=== PATIENT | female | born 1970 | race Caucasian/White ===

== ENCOUNTER → 2017-06-25 | Outpatient (CLI) | payer BC, OTHER ==
[~2017-06-25] MED LIST: CLB/200 PO; IBUP-1050 PO
--- NOTE | 2017-06-25 09:41 | DIAGNOSTIC IMAGING REPORT ---
R KNEE 4 OR MORE CLINICAL HISTORY: RIGHT KNEE PAIN AND SWELLING pain. Edema. COMPARISON: None. DISCUSSION: The bones and joint spaces appear intact. There is no evidence of fracture, dislocation or bony disease. There is no evidence for soft tissue swelling. IMPRESSION: Negative study. The above report was generated using voice recognition software. It may contain grammatical, syntax or spelling errors. Electronically signed by: Donta Duenas M.D. 06/25/2017 9:40 AM Dictated Date/Time: 06/25/2017 9:39 AM
== END | disposition home or self-care (01) ==
LOC: C.RDSM 09:30
PROVIDERS: ATTEND Family Medicine
DX: M25.561 Pain in right knee (principal)

== ENCOUNTER → 2017-06-27 | Outpatient (CLI) | payer OTHER | END | disposition home or self-care (01) | LOC: C.RDSM 14:43 | PROVIDERS: ATTEND Orthopaedic Surgery | DX: M79.604 Pain in right leg (principal) ==

== ENCOUNTER → 2017-07-01 | Day surgery (SDC) | payer OTHER ==
[2017-06-28 14:49] VITALS: Ht 162.6 cm; Wt 102.3 kg
[~2017-07-01] VITALS: Ht 162.6 cm; Wt 102.3 kg
[~2017-07-01] MED LIST changes: +ATROPINE SULFATE 0.1 MG/ML 5ML SYR IV PRN; +CEFAZOLIN 2000MG IV PUSH 15 ML IV SCH; +DEXAMETHASONE SOD INJ 4 MG/ML VIAL ONE; +EpINEphrine INJ 1MG/ML AMP 1 MG/ML AMP ONE; +FENTANYL CITRATE INJ 50 MCG/1 ML 2 ML VIAL IV PRN; +FENTANYL CITRATE INJ 50 MCG/1 ML 2 ML VIAL ONE; +HYDROCODONE/ACETAMIN 5/325MG TAB PO PRN; -IBUP-1050 PO; +KETOROLAC TROMETHAMINE 30 MG/ML VIAL IV. PRN; +KETOROLAC TROMETHAMINE 30 MG/ML VIAL ONE; +LACTATED RINGER'S 1000ML 1,000 ML IV SCH; +LIDO 2%/EPINEPHRINE 1:100000 20 ML VIAL INFIL ONE; +LIDOCAINE HCL 2% 2 ML VIAL (20MG/ML) ONE; +METOCLOPRAMIDE HCL INJ 5 MG/ML 2 ML VIAL IV PRN; +MIDAZOLAM HCL 1 MG/ML 2ML VIAL ONE; +MoRPHine SULFATE 2 MG/ML CARP IV PRN; +MoRPHine SULFATE 4 MG/ML 1 ML CARP\\VIAL IV PRN; +ONDANSETRON INJ 2 MG/ML 2 ML VIAL IV PRN; +ONDANSETRON INJ 2 MG/ML 2 ML VIAL ONE; +PROPOFOL IV EMULSION 10 MG/ML 20 ML VIAL IV ONE; +ROPIVACAINE 0.5% 5 MG/ML 30 ML VIAL ONE; +SODIUM CHLORIDE 0.9% 1000ML 1,000 ML IV SCH
--- NOTE | 2017-07-01 08:21 | History & Physical Bridge - [place] ---
H&P Re-Evaluation Bridge Note: I have examined the patient, reviewed the History & Physical and in the interval since the performance of the History & Physical I have noted the following changes of clinical significance: She has tried to stop smoking, having only 3 cigarettes total since I saw her last week, including none yesterday. Otherwise, No changes noted
--- NOTE | 2017-07-01 09:56 | [facility] Post Operative Brief Note ---
Immediate Operative Summary Operative Date Jul 01, 2017. Pre-Operative Diagnosis Right Knee Medial Meniscus Root Tear Post-Operative Diagnosis Same Procedure(s) Performed Right Knee Arthroscopy, Medial Meniscal Root Repair Surgeon Dr. Palencia Police Officer Crime Prevention Surgeon(s) Shaun Flores PA-C Estimated Blood Loss 10ml Findings Consistent with Post-Op Diagnosis Fluids (cc crystalloids) 1000 cc Specimens None Drains None Anesthesia Type General Complication(s) none Disposition Accompanied Pt To Recovery: no Disposition: Recovery Room / PACU
--- NOTE | 2017-07-01 10:08 | [facility] Operative Report ---
Operative Report Operative Date Jul 01, 2017. Pre-Operative Diagnosis Right Knee Medial Meniscus Root Tear Post-Operative Diagnosis Same Procedure(s) Performed Right Knee Arthroscopy, Medial Meniscal Root Repair Surgeon Dr. Palencia Biometrician Surgeon(s) Shaun Flores PA-C Estimated Blood Loss 10ml Fluids 1000 cc Specimens None Drains None Anesthesia Type General Complication(s) none Disposition no Recovery Room / PACU Description of Procedure I was present during entire procedure and performed wound closure. See Dr. Palencia note for specifics of procedure. I attest to the content of the Intraoperative Record and any orders documented therein. Any exceptions are noted below.
--- NOTE | 2017-07-01 10:12 | Discharge Instructions ---
Discharge Instructions Date of Service Jul 01, 2017. Admission Reason for Admission: Right Knee Medial Meniscus Tear Discharge Discharge Diagnosis / Problem: Right Knee Medial Meniscus Tear; Chondromalacia Discharge Goals Goal(s): Decrease discomfort, Improve function, Increase independence Activity Recommendations Activity Limitations: as noted below Lifting Limitations: none Exercise/Sports Limitations: until after follow-up appointment May Resume Sexual Activity: when tolerated Shower/Bathe: tomorrow, keep incision dry Driving or Machine Use: No driving until cleared by retirement specialist. Weightbearing Status: Right non-weightbearing (with knee brace locked in extension and with aide of crutches) . Instructions / Follow-Up Instructions / Follow-Up Post-operative Instructions Dear Patient and Family/Friends, Before you are discharged from the hospital, it is important to know what to expect when you get home after surgery. To that end, we have created this sheet of discharge instructions which covers many commonly asked questions. Make sure you go through this sheet in its entirety with your nurse before you are discharged. Please note that we will go over the specifics of your surgery and recovery when you return for your first post-operative visit. Sincerely, Dr. Palencia Pain Expect to be in a fair amount of pain after surgery. Remember, our goal is not to eliminate your pain, but to make it tolerable. It is a good idea to stay ahead of your pain by taking the medications you were prescribed once you get home. Typically, the pain starts improving 3-7 days after surgery. You should start weaning off the narcotic pain medication (oxycodone, hydrocodone, hydromorphone, morphine) as soon as your pain improves. Please call our office if your pain is not adequately controlled. Ice Ice your operative site at least 5 times a day for 15-30 minutes at a time. Make sure you have a thin cloth between the ice or cooling unit and your skin to prevent andrade bite. This is especially important if you received a nerve block. Continue icing your operative site for the first 5-7 days after surgery , then as needed. Diet/Nausea/Vomiting Start by drinking clear liquids and eating crackers. If you can tolerate this, then you may resume your normal diet. If you feel nauseated or vomit, take Zofran/ondansetron (if prescribed). Please call our office if you have intractable nausea or vomiting, or, if after hours, you may go to the Emergency Room for help. Constipation Constipation is a common side effect of narcotic pain medication. If you have not had a bowel movement within 2 days after surgery, we recommend purchasing an over the counter laxative such as Milk of Magnesia, Dulcolax, or Miralax from a local pharmacy, and taking it as instructed. Call our clinic if any questions. Slings and Braces If you were placed in a sling or brace, it must be worn at all times, including sleep. You may remove your sling or brace for physical therapy, home exercises , and showering. The length of time you will be in your brace and range of motion restrictions depends on what surgery you had; these details will be reviewed at your first post-operative appointment. Weight bearing and Range of Motion. Do not bear any weight through your operative extremity immediately after surgery. If you had upper extremity surgery, do not lift anything with that arm. If you are in a knee brace, keep it locked in place until your follow-up. We will discuss your weight bearing, range of motion, and lifting restrictions in detail at your first post-operative appointment. Continuous Passive Motion (CPM) Machine If you were prescribed a CPM machine, it will start after your first post- operative appointment, at which time we will give you instructions on the range of motion settings and duration of treatment Physical therapy You will be given a prescription for physical therapy or occupational therapy at your first post-operative appointment. Typically, patients start therapy within 1 week of surgery Wound care and showering We will inspect your wound at your first post-operative visit, and may do a dressing change at that time. Most patients will be in a water-proof dressing that is removed 14 days after surgery. It is normal to see some dried blood on the dressing. Do not remove your dressing, paper strips or sutures yourself unless you are given permission. Showering is allowed the day after surgery. Do not scrub or remove any dressings. The wound should not be submerged underwater (i.e. in a bathtub or pool) until 4 weeks after surgery NICOLE stockings If you were given white stockings, these are to be worn at all times except to shower (on both legs) for the first 2 weeks after surgery. Driving You may not drive while taking narcotic pain medication or while in a cast, splint, sling or brace. You, the patient, need to make the final determination about when you are safe to drive, however, the earliest you may consider driving after surgery is below: Hand/Wrist/Elbow Surgery: 3 days Shoulder Surgery: 2 weeks Hip,/Knee/Ankle Surgery: 4 weeks Fracture repair: 6 weeks Return to Work Your return to work depends on what surgery was done and what type of work you do. Please bring any paperwork your employer needs completed to your first post -operative visit. Also, bring a description of your job duties, as this helps us to understand what risks you may face at work. Travel Avoid long distance travel (greater than 1 hour) in airplanes and cars for the first 6 weeks after surgery. If you must travel, you need to have a Doppler ultrasound done before you travel to rule out a blood clot in your legs. Follow-up You should have a follow-up appointment already scheduled 1-2 days after surgery. If not, please contact our office to make this appointment before you leave the hospital. When to call the office It is normal to have swelling and bruising in the limb that was operated on. This will improve with time. It is also normal to have fevers for the first 2 days after surgery. Reasons you should call your doctor include: Uncontrolled pain; Nausea, vomiting, or constipation that does not improve with medication; Fevers over 101.5, chills, sweats; Drainage or bleeding from the wound; Foul odor; Spreading areas of redness; Any other concerns Current Hospital Diet Patient's current hospital diet: Discharge Diet Recommended Diet: Regular Diet Procedures Procedures Performed: Right Knee Arthroscopy, Medial Meniscal Root Repair Pending Studies Studies pending at discharge: no Medical Emergencies . Who to Call and When: Medical Emergencies: If at any time you feel your situation is an emergency, please call 911 immediately. . Non-Emergent Contact Non-Emergency issues call your: Primary Care Provider Call Non-Emergent contact if: you have a fever, temperature is above 101.5, your pain is not controlled, your pain is worsening, wound has increased drainage, you have any medication questions . "Provider Documentation" section prepared by Deni Flores. . [place] Drug Monitoring Program Search Results: patient reviewed within database, no issues identified, see additional documentation
--- NOTE | 2017-07-01 11:08 | OPERATIVE REPORT ---
DATE OF OPERATION: 07/01/2017 PREOPERATIVE DIAGNOSIS: Right knee medial meniscus root tear. 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 OPERATIONS PERFORMED: Right knee arthroscopy and medial meniscus root repair, chondroplasty of medial femoral condyle. SURGEON: Yung Palencia MD BRICK MASON SURGEON: Shaun Flores. ESTIMATED BLOOD LOSS: 10 mL. IV FLUIDS: 1000 mL crystalloid. SPECIMENS: None. COMPLICATIONS: None. IMPLANTS: Three [employer] FasT-Fix all-inside suturing devices. INDICATIONS: Ms. Orozco is a 46-year-old female who injured herself walking down some stairs back in December of 2016 when she felt a pop in the posterior aspect of her knee. She went on to have an MRI that was suspicious for a root tear. She was treated nonoperatively with 2 corticosteroid injections and 3 rounds of physical therapy, which unfortunately failed to relieve her pain. She has medial joint line pain that is bothersome for her at work and while she is doing stairs. Physical exam is significant for medial joint line tenderness to palpation as well as obesity and a positive Raffy's test. Her long leg alignment films show her to be in a varus alignment with weightbearing axis passing just medial to the downslope of the tibial spine. She is a smoker. I had a long discussion with her about the risks and benefits of surgery, alternatives to surgery and expected outcomes. She understands that smoking has a negative affect on healing and that it is in her best interest to stop smoking before and after the surgery, and she agrees that she will do this. After reviewing all the risks and benefits of surgery, alternatives to surgery and expected outcomes, she elected to proceed. All questions were answered. Informed consent was signed. OPERATIVE FINDINGS: 1. The undersurface of the patella was normal. 2. The trochlea was normal. 3. The medial and lateral gutters as well as the suprapatellar pouch were normal with no loose bodies. 4. The medial femoral condyle showed a large grade 3 chondral lesion, measuring approximately 10 x 21 mm. 5. The medial tibial plateau showed an approximately 7 mm diameter area of grade 3 chondromalacia. 6. Medial meniscus showed a radial tear adjacent to the root with some residual stump of the root remaining. There was reasonable mobility of the meniscal tissue. 7. The lateral compartment showed grade 1 chondromalacia of the lateral femoral condyle and lateral tibial plateau. Lateral meniscus was normal. 8. ACL and the PCL were intact. A chondroplasty was performed of the medial femoral condyle lesion. The medial meniscus root tear was repaired with 2 horizontal mattress all-inside sutures with a backup horizontal mattress suture placed more through the posterior horn. The notch was microfractured to increase the probability of meniscal healing. DESCRIPTION OF THE OPERATION: The patient was identified in the preoperative holding area, where her surgical site was marked. She was brought back to main operating room, where she was placed on the operating room table and general anesthesia was administered. All bony prominences were padded. Perioperative antibiotics were administered. She was prepped and draped in the normal sterile fashion. Prior to incision, a multidisciplinary timeout was called. All in the room were in agreement. We began by injecting our portal sites with a total of 5 mL of 2% lidocaine with epinephrine. Anterolateral portal was then created followed by a medial working portal under direct visualization. We then performed a diagnostic arthroscopy revealing the above findings. Once diagnostic arthroscopy was complete, we then introduced the shaver, which was used to perform a gentle chondroplasty of the medial femoral condyle and remove any unstable flaps. The meniscus was extensively probed and the tear was reducible. Therefore, I elected to repair it. We opened up a FasT-Fix meniscal suturing device and placed 2 horizontal mattress sutures across the radial tear, which were tensioned down to reduce the tear, then cut. I then placed a backup horizontal mattress suture through the posterior horn also in horizontal mattress fashion. Meniscus tear was then once again probed and there was no longer any displacement across the tear. I felt it was in her best interest to microfracture the notch to increase the healing rates, particularly in light of the fact that she is in varus alignment and has been a smoker, although she is attempting to quit. A 45-degree microfracture awl was introduced through the anteromedial portal and used to create 3 microfracture holes in the lateral femoral condyle in the notch just anterior to the ACL insertion. The arthroscopic fluid was turned off and marrow elements could be seen emanating into the knee through the microfracture holes. At this point, the arthroscopic instruments were removed from the knee. Her portals were closed with 3-0 Monocryl sutures in an inverted fashion. Steri-Strips and sterile dressings were applied. She was placed into a hinged knee brace locked in full extension. She was awoke from anesthesia and transferred to recovery room in stable condition. POSTOPERATIVE COURSE: The patient will be discharged home from the recovery room. She will return to clinic tomorrow to start physical therapy and review her restrictions and arthroscopic images. She will be on a complex meniscus repair protocol, which entails 6 weeks of toe touch weightbearing in a brace. She will be on aspirin for DVT prophylaxis. I attest to the content of the Intraoperative Record and any orders documented therein. Any exceptions are noted below. JOAO
[2017-07-01 11:31] VITALS: TEMP 36.3
--- NOTE | 2017-07-01 11:41 | Anesthesia Progress Nt - [facility] ---
Anesthesia Post Op Note Date & Time Jul 01, 2017 at 11:41 Vital Signs Pain Intensity: 0 Vital Signs Past 12 Hours Date Time Temp Pulse Resp B/P (MAP) Pulse Ox O2 Delivery O2 Flow Rate FiO2 07/01/17 11:31 36.3 70 16 126/84 (98) 95 Room Air 07/01/17 11:07 63 18 95 07/01/17 11:07 63 18 95 07/01/17 11:07 66 18 07/01/17 11:07 66 18 07/01/17 11:06 117/87 07/01/17 11:06 117/87 07/01/17 11:03 36.4 67 20 117/87 94 Room Air 07/01/17 11:02 69 13 97 07/01/17 11:02 67 13 07/01/17 11:02 67 13 07/01/17 11:02 69 13 97 07/01/17 11:01 123/84 07/01/17 11:01 123/84 07/01/17 10:57 63 17 07/01/17 10:57 63 17 98 07/01/17 10:57 63 17 07/01/17 10:57 63 17 98 07/01/17 10:56 125/81 07/01/17 10:56 125/81 07/01/17 10:52 65 12 07/01/17 10:52 61 12 99 07/01/17 10:52 65 12 07/01/17 10:52 61 12 99 07/01/17 10:51 117/88 07/01/17 10:51 117/88 07/01/17 10:47 68 18 91 07/01/17 10:47 68 18 91 07/01/17 10:47 65 18 07/01/17 10:47 65 18 07/01/17 10:46 126/85 07/01/17 10:46 126/85 07/01/17 10:42 75 14 07/01/17 10:42 77 14 97 07/01/17 10:42 75 14 07/01/17 10:42 77 14 97 07/01/17 10:41 119/85 07/01/17 10:41 119/85 07/01/17 10:37 63 16 98 07/01/17 10:37 63 16 98 07/01/17 10:37 63 16 07/01/17 10:37 63 16 07/01/17 10:36 123/86 07/01/17 10:36 123/86 07/01/17 10:32 62 17 07/01/17 10:32 62 17 07/01/17 10:32 64 17 96 07/01/17 10:32 64 17 96 07/01/17 10:31 128/83 07/01/17 10:31 128/83 07/01/17 10:27 64 19 07/01/17 10:27 64 19 07/01/17 10:27 66 19 97 07/01/17 10:27 66 19 97 07/01/17 10:26 122/84 07/01/17 10:26 122/84 07/01/17 10:22 65 19 96 07/01/17 10:22 65 19 96 07/01/17 10:22 65 19 07/01/17 10:22 65 19 07/01/17 10:21 128/83 07/01/17 10:21 128/83 07/01/17 10:17 65 16 95 07/01/17 10:17 66 16 07/01/17 10:17 65 16 95 07/01/17 10:17 66 16 07/01/17 10:16 118/80 07/01/17 10:16 118/80 07/01/17 10:12 67 14 07/01/17 10:12 70 14 97 07/01/17 10:12 67 14 07/01/17 10:12 70 14 97 07/01/17 10:11 122/85 07/01/17 10:11 122/85 07/01/17 10:08 128/80 07/01/17 10:08 128/80 07/01/17 10:07 67 07/01/17 10:07 67 97 07/01/17 10:07 36.8 72 16 128/80 95 Mask 6 07/01/17 10:07 67 97 07/01/17 10:07 67 07/01/17 07:15 36.4 77 20 129/88 (102) Room Air Notes Mental Status: alert / awake / arousable, participated in evaluation Pt Amnestic to Procedure: Yes Nausea / Vomiting: adequately controlled Pain: adequately controlled Airway Patency, RR, SpO2: stable & adequate BP & HR: stable & adequate Hydration State: stable & adequate Anesthetic Complications: no major complications apparent
[2017-07-01 12:40] VITALS: BP 123/82; O2SAT 96
== END | disposition home or self-care (01) ==
LOC: X.SURG 06:47
PROVIDERS: ATTEND Orthopaedic Surgery
DX: S83.241A Other tear of medial meniscus, current injury, right knee, initial encounter (principal); X50.9XXA Other and unspecified overexertion or strenuous movements or postures, initial encounter; F17.210 Nicotine dependence, cigarettes, uncomplicated; Z83.3 Family history of diabetes mellitus; Z83.6 Family history of other diseases of the respiratory system

== ENCOUNTER → 2017-11-26 | Outpatient (CLI) | payer OTHER ==
[~2017-11-26] MED LIST changes: -ATROPINE SULFATE 0.1 MG/ML 5ML SYR IV PRN; -CEFAZOLIN 2000MG IV PUSH 15 ML IV SCH; -DEXAMETHASONE SOD INJ 4 MG/ML VIAL ONE; -EpINEphrine INJ 1MG/ML AMP 1 MG/ML AMP ONE; -FENTANYL CITRATE INJ 50 MCG/1 ML 2 ML VIAL IV PRN; -FENTANYL CITRATE INJ 50 MCG/1 ML 2 ML VIAL ONE; -HYDROCODONE/ACETAMIN 5/325MG TAB PO PRN; -KETOROLAC TROMETHAMINE 30 MG/ML VIAL IV. PRN; -KETOROLAC TROMETHAMINE 30 MG/ML VIAL ONE; -LACTATED RINGER'S 1000ML 1,000 ML IV SCH; -LIDO 2%/EPINEPHRINE 1:100000 20 ML VIAL INFIL ONE; -LIDOCAINE HCL 2% 2 ML VIAL (20MG/ML) ONE; -METOCLOPRAMIDE HCL INJ 5 MG/ML 2 ML VIAL IV PRN; -MIDAZOLAM HCL 1 MG/ML 2ML VIAL ONE; -MoRPHine SULFATE 2 MG/ML CARP IV PRN; -MoRPHine SULFATE 4 MG/ML 1 ML CARP\\VIAL IV PRN; -ONDANSETRON INJ 2 MG/ML 2 ML VIAL IV PRN; -ONDANSETRON INJ 2 MG/ML 2 ML VIAL ONE; -PROPOFOL IV EMULSION 10 MG/ML 20 ML VIAL IV ONE; -ROPIVACAINE 0.5% 5 MG/ML 30 ML VIAL ONE; -SODIUM CHLORIDE 0.9% 1000ML 1,000 ML IV SCH
== END | disposition home or self-care (01) ==
LOC: C.RDSM 11:27
PROVIDERS: ATTEND Orthopaedic Surgery
DX: M25.562 Pain in left knee (principal)

== ENCOUNTER 2023-05-11 14:40 | Observation (INO) ==
[2023-05-11] MEDS ORDERED: METOCLOPRAMIDE HCL INJ 5 MG/ML 2 ML VIAL IV STA (15:01)
[2023-05-11] MEDS ORDERED: diphenhydrAMINE 50 MG/ML VIAL IV STA (15:01)
[2023-05-11] MEDS ORDERED: KETOROLAC TROMETHAMINE 15 MG/ML VIAL IV STA (15:01)
[2023-05-11] MEDS ORDERED: SODIUM CHLORIDE 0.9% 1,000 ML IV ONE (15:01)
--- NOTE | 2023-05-11 15:04 | Emergency Department Note ---
ED Provider Note History of Present Illness Chief Complaint: Vomiting Stated Complaint: VOMITING Time Seen by Provider: 05/11/23 14:48 Source: patient Mode of arrival: ambulatory Limitations: no limitations This patient is a 52-year-old female who presents to the emergency department for evaluation of headache and vomiting. Patient reports that her symptoms started 2 days ago. She reports that she initially developed a frontal headache and vomiting. She thought this might be due to vertigo as she has had this in the past and she had some dizziness with this. She states that she developed worsening vomiting and could not stop throwing up so she came to the ER 2 days ago. She was treated and felt better when she went home, but states that shortly afterward her vomiting returned. She has tried Zofran at home without relief. She has been unable to keep anything down. She reports that she has soreness in her throat and abdomen from vomiting. She continues to have a frontal headache. Does have a history of migraines and states this feels somewhat similar, but they do not typically last this long. She denies any recent illnesses, fevers or neck pain/stiffness. Home Medications Medication Instructions Recorded Confirmed Type meclizine 25 mg tablet 25 mg PO TID PRN dizziness #20 tabs 05/09/19 05/11/23 Rx meloxicam 15 mg tablet 15 mg PO DAILY 05/10/23 05/11/23 History ondansetron HCl 4 mg tablet 4 mg PO UD PRN Nausea And Vomiting 05/10/23 05/11/23 History venlafaxine 37.5 mg 37.5 mg PO DAILY 05/10/23 05/11/23 History capsule,extended release 24 hr albuterol sulfate 90 mcg/actuation 2 puff inhalation Q6H PRN 05/11/23 05/11/23 History aerosol inhaler Shortness Of Breath Or Wheezing Allergies Allergy/AdvReac Type Severity Reaction Status Date / Time oxycodone Allergy Mild NAUSEA Verified 05/11/23 16:56 Past Med/Surg History Medical History Migraine headache Marijuana use No pertinent past medical history Surgical History H/O: hysterectomy Social History Smoking Status: Current every day smoker Tobacco Type: Cigarettes Cigarettes Per Day: 15; Do You Dip or Chew Tobacco: No; Tobacco Cessation Education Requested by Patient: No Hx Alcohol Use: No Hx Substance Use: Yes Last Used Substance: Days (ago) Last Used Substance Other:: Pt. states she used last week Preferred Language: Armenian Rn Labor And Delivery Required: No Beliefs That Will Affect Care: None Current Living Situation: Spouse Other Information That Helps Us Care for You: No Feels Safe at Home: Yes Safety Concerns: Feels Safe At This Time Assistive Devices: Denture - Upper, Denture - Lower and Glasses Physical Exam Vital Signs Vital Signs - 24 hr 05/11/23 14:46 05/11/23 15:40 05/11/23 16:20 Pulse Rate 80 64 Pulse Rate [Apical] 64 Respiratory Rate 18 15 Blood Pressure 146/91 H Blood Pressure [Left Arm] 158/83 H Blood Pressure Mean 109 Blood Pressure Mean [Left Arm] 108 Blood Pressure Position Sitting Pulse Oximetry 92 95 Oxygen Delivery Method Room Air Room Air Sepsis Recent Fever Within 48 Hours No Sepsis New/Unexplained Change in Mental Status No Sepsis Action Taken by Nursing No Action Required 05/11/23 17:00 05/11/23 19:30 Pulse Rate Pulse Rate [Apical] 70 72 Respiratory Rate 16 16 Blood Pressure Blood Pressure [Left Arm] 128/94 128/79 Blood Pressure Mean Blood Pressure Mean [Left Arm] 105 95 Blood Pressure Position Pulse Oximetry 93 97 Oxygen Delivery Method Room Air Room Air Sepsis Recent Fever Within 48 Hours Sepsis New/Unexplained Change in Mental Status Sepsis Action Taken by Nursing VITALS: Vitals are noted on the nurse's note and reviewed by myself. GENERAL: This is a 52-year-old female, in no acute distress, holding an emesis bag but not actively vomiting. SKIN: The skin was without rashes. EYES: Pupils equal round and reactive to light and accommodation. NECK: Supple without nuchal rigidity. No lymphadenopathy. Full range of motion of the neck without meningismus. HEART: Regular rate and rhythm without murmurs gallops or rubs. LUNGS: Clear to auscultation bilaterally without wheezes, rales or rhonchi. ABDOMEN: Positive bowel sounds x 4. Soft, nontender to palpation. NEURO: Patient was alert and oriented to person place and time. Course Administered Medications Enoxaparin Sodium (Enoxaparin Inj 40 Mg/0.4 Ml Syr) 40 mg SQ HS DARLYN Stop: 06/10/23 22:59 Last Admin: 05/11/23 22:56 Dose: Not Given Documented By: YUSEF Lactated Ringer's (Lr) 1,000 mls @ 125 mls/hr IV .Q8H DARLYN Stop: 05/12/23 22:23 Last Admin: 05/12/23 06:38 Dose: 125 mls/hr Documented By: Infusion: 05/12/23 06:38 Dose: Infused Documented By: Admin: 05/11/23 22:44 Dose: 125 mls/hr Documented By: YUSEF Ceftriaxone Sodium 2,000 mg/ (Dextrose) 50 mls @ 100 mls/hr IV Q24H DARLYN; Protocol Stop: 05/17/23 07:59 Last Infusion: 05/12/23 10:02 Dose: Infused Documented By: Admin: 05/12/23 09:07 Dose: 100 mls/hr Documented By: CEE Ketorolac Tromethamine (Ketorolac Tromethamine 15 Mg/Ml Vial) 15 mg IV Q6H PRN PRN Reason: Migraine Pain Stop: 05/16/23 22:23 Last Admin: 05/12/23 11:27 Dose: 15 mg Documented By: CEE Venlafaxine HCl (Venlafaxine Hcl Xr 37.5 Mg Capxr) 37.5 mg PO DAILY DARLYN Stop: 06/11/23 08:59 Last Admin: 05/12/23 07:27 Dose: 37.5 mg Documented By: CEE Discontinued Medications Diphenhydramine HCl (Diphenhydramine 50 Mg/Ml Vial) 25 mg IV NOW STA Stop: 05/11/23 15:02 Last Admin: 05/11/23 15:26 Dose: 25 mg Documented By: JOSEE Sodium Chloride (Nss) 1,000 mls @ 999 mls/hr IV .Q1H1M ONE Stop: 05/11/23 16:01 Last Infusion: 05/11/23 16:34 Dose: Infused Documented By: Admin: 05/11/23 15:26 Dose: 999 mls/hr Documented By: JOSEE Potassium Chloride (K Cem / Wtr) 10 meq in 100 mls @ 100 mls/hr IV ONE ONE Stop: 05/11/23 21:29 Last Infusion: 05/11/23 22:25 Dose: Infused Documented By: Admin: 05/11/23 20:46 Dose: 100 mls/hr Documented By: JOSEE Magnesium Sulfate/Dextrose (Magnesium Sulfate / D5w) 1 gm in 100 mls @ 50 mls/hr IV Q2H DARLYN Stop: 05/12/23 01:59 Last Infusion: 05/12/23 03:17 Dose: Infused Documented By: Admin: 05/12/23 00:45 Dose: 50 mls/hr Documented By: Infusion: 05/12/23 00:45 Dose: Infused Documented By: Admin: 05/11/23 22:45 Dose: 50 mls/hr Documented By: YUSEF Ketorolac Tromethamine (Ketorolac Tromethamine 15 Mg/Ml Vial) 15 mg IV NOW STA Stop: 05/11/23 15:02 Last Admin: 05/11/23 15:26 Dose: 15 mg Documented By: JOSEE Metoclopramide HCl (Metoclopramide Hcl Inj 5 Mg/Ml 2 Ml Vial) 10 mg IV NOW STA Stop: 05/11/23 15:02 Last Admin: 05/11/23 15:26 Dose: 10 mg Documented By: JOSEE Sumatriptan Succinate (Sumatriptan Succinate 6 Mg/0.5 Ml Vial) 6 mg SQ NOW STA Stop: 05/11/23 21:55 Last Admin: 05/12/23 03:22 Dose: 6 mg Documented By: YUSEF Medical Decision Making Differential Diagnosis Gastroenteritis, food borne illness, infections, appendicitis, diverticulitis, inflammatory bowel disease, obstruction, GI bleed, biliary pathology, volvulus, as well as other pathologies. Medical Records Attestation: I reviewed the patient's medical records. Additional Comments: Prior ER records reviewed Laboratory Data Attestation: I reviewed the patient's lab results. 05/12/23 06:13 05/12/23 06:13 Lab Results 05/11/23 Range/Units 15:18 WBC 8.42 (4.8-10.8) K/ul RBC 5.22 (4.20-5.40) M/uL Hgb 16.3 H (12.0-16.0) g/dl Hct 47.4 H (37.0-47.0) % MCV 90.8 (80.0-100.0) fL MCH 31.2 (25.0-34.0) pg MCHC 34.4 (32.0-36.0) g/dL RDW Std Deviation 41.7 (36.4-46.3) fL RDW Coeff of Eduard 12.7 (11.5-14.5) % Plt Count 279 (130-400) K/uL MPV 9.1 L (9.4-12.4) fL Immature Gran % (Auto) 0.4 % Neut % (Auto) 65.5 % Lymph % (Auto) 24.7 % [place] % (Auto) 7.2 % Eos % (Auto) 1.2 % Baso % (Auto) 1.0 % Neut # (Auto) 5.52 (1.40-6.50) K/uL Lymph # (Auto) 2.08 (1.20-3.40) K/uL [place] # (Auto) 0.61 H (0.11-0.59) K/uL Eos # (Auto) 0.10 (0.00-0.50) K/uL Baso # (Auto) 0.08 (0.00-0.20) K/uL Immature Gran # (Auto) 0.03 (0.01-0.20) K/uL Sodium 137 (136-145) mmol/L Potassium 3.4 L (3.5-5.1) mmol/L Chloride 103 (98-107) mmol/L Carbon Dioxide 20 L (21-32) mmol/L Anion Gap 14 H (3-11) BUN 14 (6-23) mg/dl Creatinine 0.65 (0.6-1.2) mg/dl Est Cr Clr Drug Dosing Not Reportable Est GFR ( Amer) 116.7 ml/min Est GFR (Non-Af Amer) 100.7 ml/min BUN/Creatinine Ratio 21.5 H (10-20) Glucose 109 H (70-99(Fasting)) mg/dl Calcium 9.5 (8.6-10.3) mg/dl Magnesium 1.7 (1.7-2.4) mg/dl Total Bilirubin 1.4 H (0.2-1.0) mg/dl AST 24 (13-39) U/L ALT 28 (7-52) U/L Alkaline Phosphatase 63 (34-104) U/L Total Protein 7.7 (6.0-8.3) gm/dl Albumin 4.6 (3.4-5.0) gm/dl Globulin 3.1 (2.5-4.0) gm/dl Albumin/Globulin Ratio 1.5 (0.9-2) Lipase 19 (11-82) U/L MDM Narrative 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 Patient was placed on the construction pit worker. Patient was noted to be in normal sinus rhythm at an initial rate of 72 bpm. The patient is a 52-year-old female who presents today complaining of continued vomiting and headache. Patient was seen here for the same thing 2 days ago. Based on the patient's presentation and work up, I feel the patient is stable for outpatient treatment. The patient was educated to return to the emergency department for any worsening of their current condition or new/concerning symptoms. [] will follow up with []. Discharge Plan Visit Data Chief Complaint: Vomiting Stated Complaint: VOMITING ED Provider: Niels Dao ED Midlevel Provider: Julia Alvarez Patient Disposition: Admitted As Inpatient Discharge Instructions Interventions: ED Discharge Assessment Last Done: 05/11/23 21:59
[2023-05-11 15:36] LABS: Basophils # (auto) 0.08 K/uL (0.00-0.20); Eosinophils % (auto) 1.2 %; Hematocrit (blood only) 47.4 % (37.0-47.0); Hemoglobin 16.3 g/dl (12.0-16.0); Immature Granulocytes # (auto) 0.03 K/uL (0.01-0.20); Immature Granulocytes % (auto) 0.4 %; Lymphocytes # (auto) 2.08 K/uL (1.20-3.40); Lymphocytes % (auto) 24.7 %; Mean Corpuscular Hemoglobin 31.2 pg (25.0-34.0); Mean Corpuscular Hgb Conc 34.4 g/dL (32.0-36.0); Mean Corpuscular Volume 90.8 fL (80.0-100.0); Mean Platelet Volume 9.1 fL (9.4-12.4); Monocytes # (auto) 0.61 K/uL (0.11-0.59); Monocytes % (auto) 7.2 %; Neutrophils # (auto) 5.52 K/uL (1.40-6.50); Neutrophils % (auto) 65.5 %; Platelet Count 279 K/uL (130-400); RDW Coefficient of Variation 12.7 % (11.5-14.5); RDW Standard Deviation 41.7 fL (36.4-46.3); Red Blood Count 5.22 M/uL (4.20-5.40); White Blood Count 8.42 K/ul (4.8-10.8)
[2023-05-11 16:00] LABS: Alanine Aminotransferase 28 U/L (7-52); Albumin Globulin Ratio 1.5 (0.9-2); Albumin Level 4.6 gm/dl (3.4-5.0); Alkaline Phosphatase 63 U/L (34-104); Anion Gap 14 (3-11); Aspartate Aminotransferase 24 U/L (13-39); BUN Creatinine Ratio 21.5 (10-20); Bilirubin,Total 1.4 mg/dl (0.2-1.0); Blood Urea Nitrogen 14 mg/dl (6-23); Calcium 9.5 mg/dl (8.6-10.3); Carbon Dioxide 20 mmol/L (21-32); Chloride 103 mmol/L (98-107); Est GFR (African American) 116.7 ml/min; Est GFR (Non-African American) 100.7 ml/min; Globulin 3.1 gm/dl (2.5-4.0); Glucose 109 mg/dl (70-99(Fasting)); Lipase 19 U/L (11-82); Potassium 3.4 mmol/L (3.5-5.1); Sodium 137 mmol/L (136-145); Total Protein 7.7 gm/dl (6.0-8.3)
--- NOTE | 2023-05-11 19:36 | History & Physical Report ---
Date of Service May 11, 2023 Assessment & Plan (1) Nausea and vomiting: Plan: N/V/D x 5 days No leukocytosis; afebrile BioFire on 05/10 negative UA with some blood and protein on 05/10 Lipase WNL Stool PCR ordered, pending Advance to clear liquid diet as tolerated IVF resuscitation with LR at 125 mL an hour x 3 Zofran as needed for nausea/vomiting Acetaminophen IV as needed for fever/pain Recommend outpatient HIDA scan A.m. CBC, BMP, mag (2) Migraine headache: Plan: Severe, constant headache that is exacerbated by vomiting/dry heaving Hx of migraines, but current migraine does not feel like past episodes Meclizine as needed for dizziness Toradol, Benadryl, and Reglan given in the ED Toradol 15 mg IV as needed Benadryl 25 mg IV as needed Patient reports she has been unable to keep down her home meds ?Cyclic vomiting syndrome Will trial sumatriptan 6 mg SQ; can add on PRN if patient tolerates well Restart venlafaxine daily if she is able to tolerate swallowing pills; withdrawal might be contributing to her headaches (3) Hypokalemia: Plan: Mild; K 3.4 on arrival K rider 10mEq x 1 Recheck a.m. BMP (4) Marijuana use: Plan: Marijuana positive on arrival Unclear if this is contributing to vomiting Plan Disposition: Obs - Admit to [facility] telemetry Full code Clear liquid diet, advance diet as tolerated VTE PPx: Lovenox 40 mg SQ q24h History of Present Illness Chief Complaint: Vomiting Primary Care Provider: Any Michelenelida Perkins is a 52-year-old female with PMH migraines, bronchitis, and marijuana use. She presented for vomiting and diarrhea x 5 days. She came to the CT ED on 05/10, was discharged home. She returned on 05/11. She has had yellow, liquidy stools. She also notes that she has been throwing up bile and dry heaving. She has not been tolerating solids or liquids. No change in diet prior to symptoms. No history of IBS, UC, or Crohn's. No food intolerances, but the patient notes she has gotten sick in the past when eating eggs. Patient reports she has a history of migraines, which occur a couple times per year; however she notes that her current migraines have been constant and severe. Vomiting and dry heaving makes the migraines worse. She has been taking Excedrin and ibuprofen without relief. She has not been taking her regular medications as she been unable to keep anything down. She endorses tobacco cigarette smoking; 0.5 PPD; as well as occasional marijuana use. She denies recent alcohol use. Patient works at the [employer], and reports that she has been regularly around sick contacts recently. Vital stable at time admission. ED course: Toradol 15 mg IV Benadryl 25 mg IV Reglan 10 mg IV NSS 1000 mg IV ROS: Patient endorses chills, body aches, headache, dry heaving, vomiting with bile, and diarrhea with yellow (mostly liquid, some formation), Patient denies fever, rashes, tick bites, cough, chest pain, SOB, abdominal pain, burning with urination, blood in stool or urine, or N/T in arms or legs. Allergies Allergy/AdvReac Type Severity Reaction Status Date / Time oxycodone Allergy Mild NAUSEA Verified 05/11/23 16:56 Home Medications Medication Instructions Recorded Confirmed Type meclizine 25 mg tablet 25 mg PO TID PRN dizziness #20 tabs 05/09/19 05/11/23 Rx meloxicam 15 mg tablet 15 mg PO DAILY 05/10/23 05/11/23 History ondansetron HCl 4 mg tablet 4 mg PO UD PRN Nausea And Vomiting 05/10/23 05/11/23 History venlafaxine 37.5 mg 37.5 mg PO DAILY 05/10/23 05/11/23 History capsule,extended release 24 hr albuterol sulfate 90 mcg/actuation 2 puff inhalation Q6H PRN 05/11/23 05/11/23 History aerosol inhaler Shortness Of Breath Or Wheezing Past Med/Surg History Medical History Migraine headache Marijuana use No pertinent past medical history Surgical History H/O: hysterectomy Social History Smoking Status: Current every day smoker Tobacco Type: Cigarettes Cigarettes Per Day: 15; Do You Dip or Chew Tobacco: No; Tobacco Cessation Education Requested by Patient: No Hx Alcohol Use: No Hx Substance Use: Yes Last Used Substance: Days (ago) Last Used Substance Other:: Pt. 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 Beliefs That Will Affect Care: None Current Living Situation: Spouse Other Information That Helps Us Care for You: No Feels Safe at Home: Yes Safety Concerns: Feels Safe At This Time Assistive Devices: Denture - Upper, Denture - Lower and Glasses Review of Systems Review of Systems: See HPI above Physical Exam Physical Exam: General: Acute dry heaving while in the room; diaphoretic; non-toxic appearing; cooperative HEENT: normocephalic, atraumatic; no scleral icterus; PERRLA; moist mucus membrane; vision and hearing grossly intact Neck: supple; no lymphadenopathy; trachea midline Skin: warm, moist, erythematous skin without signs of tenting; no cyanosis; no rashes, bruising, lesions, or erythema noted CV: chest wall NTP; RRR; S1/S2 normal; no murmurs/rubs/gallops; pulses intact and symmetric at radial, DP, and PT Lungs: no acute respiratory distress; symmetrical chest wall expansion; clear breath sounds across all lung bermudez w/o adventitious sounds; no wheezing ABD: Soft, NTP; BS present; no rebound/guarding; no ascites; mild distention secondary to body habitus; no signs of bruising or bleeding; negative CVA tenderness MSK: no tics or fasciculations; nonpitting edema in the LEs b/l, nonerythematous Neuro: A&Ox3; normal mood and affect; fluent speech; no focal deficits; sensation grossly intact in the LEs b/l Results & Data Results & Data Vital Signs (Past 12 Hours) Vital Signs Pulse Pulse Resp BP BP Pulse Ox O2 Del Method 05/11/23 17:00 70 16 128/94 93 Room Air 05/11/23 16:20 64 05/11/23 15:40 64 15 158/83 H 95 Room Air 05/11/23 14:46 80 18 146/91 H 92 Room Air Laboratory Results Abnormal lab results 05/11/23 Range/Units 15:18 Hgb 16.3 H (12.0-16.0) g/dl Hct 47.4 H (37.0-47.0) % MPV 9.1 L (9.4-12.4) fL [place] # (Auto) 0.61 H (0.11-0.59) K/uL Potassium 3.4 L (3.5-5.1) mmol/L Carbon Dioxide 20 L (21-32) mmol/L Anion Gap 14 H (3-11) BUN/Creatinine Ratio 21.5 H (10-20) Glucose 109 H (70-99(Fasting)) mg/dl Total Bilirubin 1.4 H (0.2-1.0) mg/dl Code Status & VTE Plan Code Status Full code VTE Prophylaxis Plan VTE Prophylaxis will be ordered: Yes Supervising Physician Co-Signing Physician Notes Patient seen and examined, chart reviewed, case discussed with ROSA Foy and I agree with the assessment and plan as above. Patient with diarrhea x 5 days as well as nausea and vomiting. Her main complaint at this time is a severe 10/10 headache - frontal, with photophobia and ongoing nausea. This does not feel exactly like her prior migraines. Given Toradol, Benadryl and Reglan in the ER with some relief, pain now 8/10 On exam she is afebrile, HD stable, NAD Skin - no rash HEENT - MM, Neck supple, PERRL,EOMI Heart - +S1/S2, regular, no m/r/g Lungs - CTA, no rales/rhonchi/wheezes Abd- +BS, soft, NT/ND Ext - warm, well perfused Neuro - grossly intact Labs and images reviewed Assessment/Plan - ongoing headache and nausea, photophobia. Uncertain etiology at this time - possible migraine? cyclic vomiting? -Will give Sumatriptan and Dexamethasone and monitor response -Continue PRN Toradol, Benadryl, Zofran and Tylenol -IVF -If no improvement with these therapies would consider MRI, possible MRV -Remainder as above PG Care Time/CCT Total # of Minutes Spent Total Time Spent with Patient: Total time spent is greater than 50% in coordination of care (as documented) at patient's floor/unit and/or counseling patient: [place] [address] INT INP/OBS CARE 2/55MIN Patient Type New Medical Decision Making Moderate Complexity Diagnoses Nausea and vomiting R11.2 Migraine headache G43.909 Hypokalemia E87.6 Marijuana use F12.90
[2023-05-11] MEDS ORDERED: POTASSIUM CHLORIDE / WTR 10 MEQ/100 ML PLCT IV ONE (20:30)
[2023-05-11 20:37] LABS: Magnesium 1.7 mg/dl (1.7-2.4)
[2023-05-11] MEDS ORDERED: SUMAtriptan succinate 6 MG/0.5 ML VIAL SQ STA (21:54)
[2023-05-11] MEDS ORDERED: MECLIZINE HCL 25 MG TAB PO PRN (22:24)
[2023-05-11] MEDS ORDERED: KETOROLAC TROMETHAMINE 15 MG/ML VIAL IV PRN (22:24)
[2023-05-11] MEDS ORDERED: ALBUTEROL HFA 8 GM INHALER INH PRN (22:24)
[2023-05-11] MEDS ORDERED: ONDANSETRON INJ 2 MG/ML 2 ML VIAL IV PRN (22:24)
[2023-05-11] MEDS ORDERED: diphenhydrAMINE 50 MG/ML VIAL IV PRN (22:24)
[2023-05-11] MEDS ORDERED: ACETAMINOPHEN 1,000 MG/100 ML VIAL IV PRN (22:24)
[2023-05-11] MEDS: LACTATED RINGER'S 1,000 ML IV SCH (22:44)
[2023-05-11] MEDS: MAGNESIUM SULFATE / D5W 1 GM/100 ML BAG IV SCH (22:45)
[2023-05-11] MEDS: ENOXAPARIN INJ 40 MG/0.4 ML SYR SQ SCH (22:56)
[2023-05-11 23:10] LABS: Appearance Urine Clear (Clear); Bilirubin Urine 1+ (Negative); Blood Urine 2+ (Negative); Color Urine Yellow; Glucose Urine UA Negative (Negative); Ketones Urine 2+ (Negative); Leukocyte Esterase Urine Negative (Negative); Nitrite Urine Negative (Negative); Protein Urine 1+ (Negative); Specific Gravity Urine 1.025 (1.000-1.030); Urobilinogen Urine Positive (Negative); pH Urine 6.5 (4.5-7.5)
[2023-05-11 23:36] LABS: Mucus Urine Present (None Prsent)
[2023-05-11 23:37] LABS: Bacteria Urine 1+ (Negative); Epithelial Cell Urine 0-5 /lpf (0-5)
[2023-05-12] MEDS: MAGNESIUM SULFATE / D5W 1 GM/100 ML BAG IV SCH (00:45)
[2023-05-12] MEDS: LACTATED RINGER'S 1,000 ML IV SCH ×2 (06:38→15:06)
[2023-05-12 07:01] LABS: Basophils # (auto) 0.09 K/uL (0.00-0.20); Basophils % (auto) 1.2 %; Hemoglobin 15.4 g/dl (12.0-16.0); Immature Granulocytes # (auto) 0.01 K/uL (0.01-0.20); Immature Granulocytes % (auto) 0.1 %; Lymphocytes # (auto) 2.14 K/uL (1.20-3.40); Lymphocytes % (auto) 28.3 %; Mean Corpuscular Hemoglobin 31.3 pg (25.0-34.0); Mean Corpuscular Hgb Conc 34.2 g/dL (32.0-36.0); Mean Corpuscular Volume 91.5 fL (80.0-100.0); Mean Platelet Volume 9.4 fL (9.4-12.4); Monocytes # (auto) 0.67 K/uL (0.11-0.59); Monocytes % (auto) 8.9 %; Neutrophils # (auto) 4.36 K/uL (1.40-6.50); Neutrophils % (auto) 57.5 %; Platelet Count 236 K/uL (130-400); RDW Coefficient of Variation 12.9 % (11.5-14.5); RDW Standard Deviation 43.8 fL (36.4-46.3); Red Blood Count 4.92 M/uL (4.20-5.40); White Blood Count 7.57 K/ul (4.8-10.8)
[2023-05-12 07:03] LABS: BUN Creatinine Ratio 19.2 (10-20); Calcium 8.8 mg/dl (8.6-10.3); Creatinine Clr Calc Pharmacy 148.5 ml/min; Est GFR (African American) 125.5 ml/min; Est GFR (Non-African American) 108.3 ml/min; Magnesium 2.2 mg/dl (1.7-2.4); Potassium 3.6 mmol/L (3.5-5.1)
[2023-05-12] MEDS: VENLAFAXINE HCL XR 37.5 MG CAPXR PO SCH (07:27)
[2023-05-12 08:47] LABS: Adenovirus F 40/41 PCR Not Detected (NotDetected); Astrovirus PCR Not Detected (NotDetected); Campylobacter PCR Not Detected (NotDetected); Cryptosporidium PCR Not Detected (NotDetected); Cyclospora cayetanensis PCR Not Detected (NotDetected); Entamoeba histolytica PCR Not Detected (NotDetected); Enteroaggregative E.coli(EAEC) Not Detected (NotDetected); Enteropathogenic E.coli (EPEC) Not Detected (NotDetected); Enterotoxigenic E.coli (ETEC) Not Detected (NotDetected); Giardia lamblia PCR Not Detected (NotDetected); Norovirus GI/GII PCR Not Detected (NotDetected); Plesiomonas shigelloides PCR Not Detected (NotDetected); Rotavirus A PCR Not Detected (NotDetected); Salmonella PCR Not Detected (NotDetected); Sapovirus PCR Not Detected (NotDetected); Shiga-like Toxin E.coli (STEC) Not Detected (NotDetected); Shigella/Enteroinvasive E.coli Not Detected (NotDetected); Vibrio cholerae PCR Not Detected (NotDetected); Vibrio species PCR Not Detected (NotDetected); Yersinia enterocolitica PCR Not Detected (NotDetected)
[2023-05-12] MEDS: cefTRIAXone SODIUM 2,000 MG in DEXTROSE 5 % MINI-B 50 ML IV SCH (09:07)
[2023-05-12] MEDS ORDERED: SUMAtriptan succinate 50 MG TAB PO ONE (12:29)
[2023-05-12] MEDS: guaiFENesin 600 MG TABCR PO SCH ×2 (12:50→23:37)
--- NOTE | 2023-05-12 13:25 | Hospitalist Progress Note ---
Date of Service May 12, 2023 Assessment & Plan (1) Nausea and vomiting: Plan: N/V/D x 5 days BioFire on 05/10 negative, stool biofire negative UA with some blood and protein on 05/10 CTA/P 05/10: possible mild colitis, large kidney stone, diffuse fatty liver with gallstones Lipase WNL - Diet advanced to full liquid for lunch, advance as tolerated IVF resuscitation with LR at 125 mL an hour x 3 --> will continue until tolerating PO intake Zofran prn nausea/vomiting Acetaminophen prn fever/pain Recommend outpatient HIDA scan CBC, BMP ordered for AM labs Mucinex q12 added for possible Post nasal drip contributing to nausea (2) Migraine headache: Plan: Severe, constant headache that is exacerbated by vomiting/dry heaving Hx of migraines, but current migraine does not feel like past episodes Meclizine as needed for dizziness Toradol 15 mg IV as needed Benadryl 25 mg IV as needed ?Cyclic vomiting syndrome - PO sumatriptran given today venlafaxine restarted (pt was not tolerating PO outpatient) (3) Hypokalemia: Plan: Mild; K 3.4 on arrival, received K rider 10mEq x 1 05/12: K 3.6 (4) Marijuana use: Plan: Marijuana positive on arrival Unclear if this is contributing to vomiting (5) Kidney stone: Plan: CTAP: with stone at right renal pelvis measuring 14.5mm - patient asymptomatic, recommend outpatient urology follow up UA - 05/12 1g ceftriaxone given for possible UTI , follow culture Plan [facility]: [facility] Full code Clear liquid diet, advance diet as tolerated VTE PPx: Lovenox 40 mg SQ q24h Admission and Anticipated Discharge Date Admission Date: May 11, 2023 Subjective Patient seen sitting up in bed. Nausea and vomiting have improved. tolerating clear liquids and hoping to eat "real food" today. However still with headache and nasal congestion. Had a loose stool this morning, but normal colored. Informed of kidney stone - no back pain or radiating pain. Tele 70s Review of Systems Review of Systems: All systems reviewed & are unremarkable except as noted in Subjective Physical Exam Physical Exam: General: sitting up in bed, appears ill, NAD, VS as above HEENT: Resp: normal respiratory effort, lungs clear to auscultation CV: RRR, no murmur, Abd: normal bowel sounds, non tender, no hepatosplenomegaly Extremities: Moves all extremities, no edema Neuro: A&O x3, Skin: intact, no lesions noted Results & Data Results & Data Vital Signs (Past 12 Hours) Vital Signs Temp Pulse Pulse Resp BP Pulse Ox O2 Del Method 05/12/23 11:22 36.6 C 75 16 171/93 H 97 Room Air 05/12/23 08:24 36.4 C L 72 20 144/91 H 95 Room Air 05/12/23 07:27 Room Air 05/12/23 07:00 62 05/12/23 03:15 36.4 C L 75 18 154/89 H 96 Room Air Laboratory Results CBC, chemistry and stool studies reviewed PG Care Time/CCT Total # of Minutes Spent Total Time Spent with Patient: Total time spent is greater than 50% in coordination of care (as documented) at patient's floor/unit and/or counseling patient: Coding Level of Care Code 19964 SUB INP/OBS CARE 3/50MIN Diagnoses Nausea and vomiting R11.2 Migraine headache G43.909 Hypokalemia E87.6 Marijuana use F12.90 Kidney stone N20.0
[2023-05-12] MEDS: ACETAMINOPHEN 500 MG TAB PO PRN (19:46)
[2023-05-12] MEDS: ENOXAPARIN INJ 40 MG/0.4 ML SYR SQ SCH (19:47)
[2023-05-12] MEDS ORDERED: guaiFENesin 600 MG TABCR PO SCH (21:00)
[2023-05-13 06:34] LABS: Basophils # (auto) 0.08 K/uL (0.00-0.20); Basophils % (auto) 1.2 %; Eosinophils # (auto) 0.41 K/uL (0.00-0.50); Hematocrit (blood only) 46.3 % (37.0-47.0); Hemoglobin 15.8 g/dl (12.0-16.0); Immature Granulocytes # (auto) 0.02 K/uL (0.01-0.20); Immature Granulocytes % (auto) 0.3 %; Lymphocytes # (auto) 1.91 K/uL (1.20-3.40); Lymphocytes % (auto) 27.8 %; Mean Corpuscular Hemoglobin 31.4 pg (25.0-34.0); Mean Corpuscular Hgb Conc 34.1 g/dL (32.0-36.0); Mean Platelet Volume 9.3 fL (9.4-12.4); Monocytes # (auto) 0.73 K/uL (0.11-0.59); Monocytes % (auto) 10.6 %; Neutrophils # (auto) 3.71 K/uL (1.40-6.50); Neutrophils % (auto) 54.1 %; Platelet Count 211 K/uL (130-400); RDW Coefficient of Variation 12.8 % (11.5-14.5); RDW Standard Deviation 43.3 fL (36.4-46.3); Red Blood Count 5.03 M/uL (4.20-5.40); White Blood Count 6.86 K/ul (4.8-10.8)
[2023-05-13 06:55] LABS: Creatinine Clr Calc Pharmacy 129.3 ml/min; Est GFR (African American) 119.8 ml/min; Est GFR (Non-African American) 103.3 ml/min; Potassium 3.9 mmol/L (3.5-5.1)
[2023-05-13] MEDS: VENLAFAXINE HCL XR 37.5 MG CAPXR PO SCH (08:02)
[2023-05-13] MEDS: cefTRIAXone SODIUM 2,000 MG in DEXTROSE 5 % MINI-B 50 ML IV SCH (08:02)
[2023-05-13] MEDS: ACETAMINOPHEN 500 MG TAB PO PRN (08:17)
--- NOTE | 2023-05-13 09:54 | Discharge Summary ---
Discharge Summary Date of Service May 13, 2023 Notes For Next Care Provider patient had atypical migraine while here, responded to sumatriptan. Questionable related to sinuses versus cyclic vomiting syndrome. Headache improved at discharge Nausea with yellow stools, also resolved by the time of discharge. Encouraged low-fat low fiber diet for the next 5 to 7 days. Discharged with some p.o. Zofran for nausea. recommend outpatient HIDA scan large kidney stone seen on CT scan, will need outpatient urology follow-up patient had mildly elevated blood pressures while inpatient, asymptomatic. States her blood pressure normally runs low, recommend outpatient follow-up. Medication Changes From Visit Zofran p.o. as needed for nausea Admission HPI Per Admitting Provider Maddie is a 52-year-old female with PMH migraines, bronchitis, and marijuana use. She presented for vomiting and diarrhea x 5 days. She came to the [facility] on 05/10, was discharged home. She returned on 05/11. She has had yellow, liquidy stools. She also notes that she has been throwing up bile and dry heaving. She has not been tolerating solids or liquids. No change in diet prior to symptoms. No history of IBS, UC, or Crohn's. No food intolerances, but the patient notes she has gotten sick in the past when eating eggs. Patient reports she has a history of migraines, which occur a couple times per year; however she notes that her current migraines have been constant and severe. Vomiting and dry heaving makes the migraines worse. She has been taking Excedrin and ibuprofen without relief. She has not been taking her regular medications as she been unable to keep anything down. She endorses tobacco cigarette smoking; 0.5 PPD; as well as occasional marijuana use. She denies recent alcohol use. Patient works at the [employer], and reports that she has been regularly around sick contacts recently. Vital stable at time admission. ED course: Toradol 15 mg IV Benadryl 25 mg IV Reglan 10 mg IV NSS 1000 mg IV ROS: Patient endorses chills, body aches, headache, dry heaving, vomiting with bile, and diarrhea with yellow (mostly liquid, some formation), Patient denies fever, rashes, tick bites, cough, chest pain, SOB, abdominal pain, burning with urination, blood in stool or urine, or N/T in arms or legs. Principal Dx & Hospital Course #1 = Principal Diagnosis (1) Nausea and vomiting: N/V/D x 5 days BioFire on 05/10 negative, stool biofire negative UA with some blood and protein on 05/10, urine culture without infection. No antibiotics needed at discharge CTA/P 05/10: possible mild colitis, large kidney stone, diffuse fatty liver with gallstones Lipase WNL - recommend low-fat/low fiber diet for the next 5 to 7 days while symptoms continue to improve Recommend outpatient HIDA scan Mucinex q12 added for possible Post nasal drip contributing to nausea (2) Migraine headache: Severe, constant headache that is exacerbated by vomiting/dry heaving Hx of migraines, but current migraine does not feel like past episodes ?Cyclic vomiting syndrome responded well to sumatriptan. mild headache at discharge that improved with Tylenol, patient reporting more sinus pressure at time of discharge venlafaxine restarted (pt was not tolerating PO outpatient) (3) Hypokalemia: resolved after parenteral replacement (4) Marijuana use: Marijuana positive on arrival, patient reports uses this for knee pain, not every day. Unclear if this is contributing to vomiting (5) Kidney stone: CTAP: with stone at right renal pelvis measuring 14.5mm - patient asymptomatic, recommend outpatient urology follow up Spoke with lab, urine culture does not reflect infectious organism Plan dispo: Discharge to home today Discharge Exam General: sitting up in bed, Appears better than prior day NAD, VS as above HEENT: Resp: normal respiratory effort, lungs clear to auscultation CV: RRR, no murmur, Abd: normal bowel sounds, non tender, no hepatosplenomegaly Extremities: Moves all extremities, no edema Neuro: A&O x3, Skin: intact, no lesions noted Updated Medication List Medication Instructions Recorded Confirmed Type meclizine 25 mg tablet 25 mg PO TID PRN dizziness #20 tabs 05/09/19 05/11/23 Rx meloxicam 15 mg tablet 15 mg PO DAILY 05/10/23 05/11/23 History venlafaxine 37.5 mg 37.5 mg PO DAILY 05/10/23 05/11/23 History capsule,extended release 24 hr albuterol sulfate 90 mcg/actuation 2 puff inhalation Q6H PRN 05/11/23 05/11/23 History aerosol inhaler Shortness Of Breath Or Wheezing acetaminophen 500 mg tablet 1,000 mg (2 x 500 mg) PO Q8H PRN 05/13/23 Rx (Tylenol Extra Strength) fever or pain 10 days #30 tabs guaifenesin 600 mg tablet, 1,200 mg (2 x 600 mg) PO Q12H 5 05/13/23 Rx extended release 12 hr (Mucinex) days #20 tabs ondansetron HCl 4 mg tablet 4 mg PO UD PRN Nausea And Vomiting 05/13/23 Rx 5 days #12 tabs Hospital Stay Data Diagnostic Imagining Performed Exam(s): CT ABDOMEN + PELVIS Without Contrast EXAM: CT Abdomen and Pelvis Without Intravenous Contrast CLINICAL HISTORY: Reason for exam: n/v/abd pains. TECHNIQUE: Axial computed tomography images of the abdomen and pelvis without intravenous contrast. CTDI is 28.14 mGy and DLP is 2042.25 mGy-cm. Automated exposure control was utilized for the study. A dose lowering technique was utilized adhering to the principles of ALARA. COMPARISON: None. FINDINGS: Lung bases: Mild bilateral posterior subpleural atelectasis. Heart: Unremarkable. No cardiomegaly. No significant pericardial effusion. Normal cardiac size . ABDOMEN: Liver: Diffuse fatty liver. Gallbladder and bile ducts: Multiple small gallstones otherwise unremarkable gallbladder and biliary system. No ductal dilation. Pancreas: Unremarkable. No ductal dilation. Spleen: Unremarkable. No splenomegaly. Adrenals: Unremarkable. No mass. Kidneys and ureters: Stone at the level of the right renal pelvis measuring 14.5 mm. Otherwise unremarkable right kidney. Normal left kidney. No hydronephrosis. Stomach and bowel: Incomplete distention of the colon with borderline thickening of the wall, cannot exclude mild colitis. Scattered diverticulosis throughout the colon more severe to the sigmoid with no signs of diverticulitis. The stomach is decompressed, otherwise unremarkable. PELVIS: Appendix: Normal appendix . Bladder: Urinary bladder is incompletely distended, otherwise unremarkable. No stones. Reproductive: Nonvisualized uterus suggestive of prior hysterectomy. ABDOMEN and PELVIS: Intraperitoneal space: Unremarkable. No free air. No significant fluid collection. Bones/joints: Multilevel mild degenerative disease throughout the spine with no acute fracture or subluxation. Soft tissues: Unremarkable. Vasculature: Unremarkable. No abdominal aortic aneurysm. Lymph nodes: Unremarkable. No enlarged lymph nodes. IMPRESSION: 1. Large stone within the right renal pelvis otherwise unremarkable right kidney. 2. Diffuse fatty liver with gallstones. Otherwise unremarkable biliary system. 3. Decompression of the colon with borderline thickening of the wall, cannot exclude mild colitis. Diverticulosis with no signs of diverticulitis. No acute appendicitis or bowel obstruction. Pending Results Patient Have Any Pending Studies at Discharge: Yes (urine culture ) Discharge Instructions Given to Patient (Per Discharging Provider) Ms. Orozco, You were hospitalized after having nausea and vomiting. This has resolved during your stay. Would recommend that you stay on a low fat, low fiber diet while for the next week or so while you continue to improve. The CT scan also showed fatty liver and gallstones that should be followed up with your PCP. Recommend outpatient HIDA scan. I have attached information about low fat/low fiber diet below. I will send some Zofran to the pharmacy in case your nausea resumes. On your CT scan, it showed that you had a large kidney stone. I recommend that you follow up with urology outpatient to discuss further management for this. We discussed that your urine culture was not growing bacteria and you did not need antibiotics. You had migraine headaches while you were here that were different than your typical migraines. This improved during your stay. I suspect you were having more of sinus headaches/migraines and would recommend that you continue Mucinex 1200mg twice a day, you can pick this up from the pharmacy over the counter. If your symptoms return please contact your PCP, for any severe symptoms, return to the ER. Total Time Total Time Spent Total Time Spent (In Minutes): Time spend day of discharge 40 minutes including direct patient care, medication reconciliation, documentation, review of labs and images, and coordination of care. Coding Level of Care Code 71411 INP/OBS DISCH >30 MIN Diagnoses Nausea and vomiting R11.2 Migraine headache G43.909 Hypokalemia E87.6 Marijuana use F12.90 Kidney stone N20.0
--- OUTSIDE RECORDS SUMMARY | 2023-05-13 12:36 | External Medical Summary | Continuity of Care Document ---
Author Name Unknown Organization [address] Address [address] [place], [place] [id number] Care Team Providers Care Hvac Service Manager Name Role Phone Any Cohn Primary Care Physician [phone] Encounter [facility] [id number] Date(s): 05/09/23 - 05/09/[address] [address] [phone] Encounter Diagnosis Dizziness(Discharge Diagnosis) - 05/09/23 Fatigue(Discharge Diagnosis) - 05/09/23 Vomiting(Discharge Diagnosis) - 05/09/23 Discharge Disposition: Home or Self Care Attending Physician: DO Snyder Allison B Allergies, Adverse Reactions, Alerts Substance Reaction Severity Status Cats Active Percocet gi upset Active Assessment and Plan Extracted from: Title:Office Visit Note Author:DO Snyder Allis on B Date:05/09/23 1.Dizziness Symptoms sound suggestive of vertigo. No alarming signs or symptom today, and did discuss with patient that if symptoms worsen to ER. She declines CT head today and states that headache is pressure and feels better with cold compress. Alarming signs discussed. Will treat with meclizine and zofran. 2.Fatigue Blood glucose check in office was 113. Will check CBC and CMP. Questionable viral etiology since patient sick last week. 3.Vomiting Unclear etiology. Patient reports that she feels nauseate with the dizziness, and unsure if viral etiology.Push fluids. Patient without abdominal complaints and she reports that she is able to keep down liquids. Warning signs discussed. Warning signs discussed. Start Meclizine and Zofran. Patient declined CT brain and will monitor. Follow up in the office or ER if symptoms worsen or persist. Medications meclizine 25 mg oral tablet Start: 05/09/23 13:27:00 EST, 1 tab, PO, tid, Disp# 15 tab, PRN: as needed for dizziness, Pharmacy:[facility] #[id number] Start Date: 05/09/23 Stop Date: 05/14/23 Status: Ordered Mobic 15 mg oral tablet Start: 12/21/22 16:00:00 EDT, 1 tab, PO, Daily, Disp# 30 tab, Refills: 6, Pharmacy: [facility] #[id number] Start Date: 12/21/22 Status: Ordered venlafaxine 37.5 mg oral capsule, extended release Start: 12/21/22 16:04:00 EDT, See Instructions, Disp# 30 cap, Refills: 11, take 1 capsule by mouth once daily, Pharmacy: [facility] #[id number] Start Date: 12/21/22 Status: Ordered Zofran 4 mg oral tablet Start: 05/09/23 13:28:00 EST, 1 tab, PO, bid, Disp# 10 tab, PRN: as needed for nausea/vomiting, Pharmacy: [facility] #[id number] Start Date: 05/09/23 Stop Date: 05/12/23 Status: Ordered ZyrTEC 10 mg oral tablet Start: 09/05/22 13:48:00 EDT, 1 tab, PO, Daily, Disp# 30 tab, Refills: 1, PRN: as needed for allergy symptoms, Pharmacy: [facility] #[id number] Start Date: 09/05/22 Stop Date: 11/04/22 Status: Ordered Mental Status 05/09/23 Barriers to Learning one year None evide nt Mandatory Health Literacy Documentation Yes Health Literacy Communication Barriers N ever Primary Language Belizean Problem List Condition Confirmation Course Effective Dates Status H ealth Status Informant Arthritis of left knee Confirmed Active Tendinopathy of elbow Confirmed Active Rash Confirmed Active Impaired fasting glucose Confirmed Active Hot flashes, menopausal Confirmed Active Osteoarthritis of left knee Confirmed Active Medial meniscus tear Confirmed Active Tobacco user Confirmed Active Diagnosis Diagnosis Type Effective Dates Health Status Clini kunal Service Informant Vomiting Discharge Diagnosis 05/09/23 Dizziness Discharge Diagnosis 05/09/23 Fatigue Discharge Diagnosis 05/09/23 Procedures Procedure Date Related Diagnosis Body Site Status Lung cancer screening 1 09/27/21 C ompleted Mammogram - screening 2, 3 09/20/21 Completed Abdominal hysterectomy Co mpleted 1no suspicious pulmonary nodules are seen. bilateral apical predominant emphysema 2Amendment: Prior outside 2D digital mammograms from [facility] dated 10/18/2008,04/06/2011. 08/03/2016 become availabel for review. No significant interval change in the glandular tissue pattern compared to the outside exams. No new mass, developing asymmetry, architectural distortion or supicious calcifiation identified. Recommend routine screenig mammography in 1 year. 3Impression: There is no mammographic evidence of malignancy. Prior outsidwe mammograms are currently being requested and if obtained they will be reviewed, compared to the current exam to assess for any more subtle chaes, and an addendum will be made to this report. Otherwise, a 1 year screening mammogram is recommended. (September2022) Results Laboratory List Name Date CBC w/ Diff. (CBC w/ Diff-ARLN) 05/09/23 Comprehensive Metabolic Panel. (Comprehe nsive Metabolic Panel-ARLN) 05/09/23 Glucose Meter (GLUCOSE METER) 05/09/23 Glucose POC Outpt 05/09/23 Most recent to oldest [Reference Range]: 1 Bilirubin, Total (QST) [0.2-1.2 mg/dL] 1 .2 mg/dL 1 (05/09/23 2:31 PM) Blood Glucose [70-120 mg/dL] 113 mg/dL 2 (05/09/23 1:26 PM) WBC Count-[facility] [3.8-10.8 Thousand/uL] 9 .4 Thousand/uL 3 (05/09/23 2:31 PM) BUN-[facility] [7-25 mg/dL] 20 mg/dL 4 (05/09/23 2:31 PM) Creatinine-[facility] [0.50-1.03 mg/dL] 0.62 mg/dL 5 (05/09/23 2:31 PM) BUN/Creat Ratio-[facility] [6-22 (calc)] SEE NOTE: (calc) 6 (05/09/23 2:31 PM) Na-[facility] [135-146 mmol/L] 139 mmol/L 7 (05/09/23 2:31 PM) K-[facility] [3.5-5.3 mmol/L] 4.5 mmol/L 8 (05/09/23 2:31 PM) Cl-[facility] [98-110 mmol/L] 105 mmol/L 9 (05/09/23 2:31 PM) CO2-[facility] [20-32 mmol/L] 26 mmol/L 10 (05/09/23 2:31 PM) Ca-[facility] [8.6-10.4 mg/dL] 9.5 mg/dL 11 (05/09/23 2:31 PM) MPV-[facility] [7.5-12.5 fL] 9.4 fL 12 (05/09/23 2:31 PM) Absolute Neutrophils-[facility] [0948-3117 ce lls/uL] 5339 cells/uL 13 (05/09/23 2:31 PM) Absolute Lymphocytes-[facility] [850-3900 herrera ls/uL] 2970 cells/uL 14 (05/09/23 2:31 PM) Absolute Monocytes-[facility] [200-950 cells/ uL] 649 cells/uL 15 (05/09/23 2:31 PM) Absolute Eosinophils-[facility] [15-500 cells /uL] 329 cells/uL 16 (05/09/23 2:31 PM) Absolute Basophils-[facility] [0-200 cells/uL ] 113 cells/uL 17 (05/09/23 2:31 PM) Neutrophils-[facility] 56.8 % 18 (05/09/23 2:31 PM) Lymphocytes-[facility] 31.6 % 19 (05/09/23 2:31 PM) Monocytes-[facility] 6.9 % 20 (05/09/23 2:31 PM) Eosinophils-[facility] 3.5 % 21 (05/09/23 2:31 PM) Basophils-[facility] 1.2 % 22 (05/09/23 2:31 PM) Globulin-[facility] [1.9-3.7 g/dL (calc)] 3.2 g/dL (calc) 23 (05/09/23 2:31 PM) A/G Ratio-[facility] [1.0-2.5 (calc)] 1.4 (ca lc) 24 (05/09/23 2:31 PM) Blood Glucose Ref Range [70 - 120 mg/dl] (05/09/23 1:26 PM) Gluc (comment) Testing performed at : 25 *Unknown* (05/09/23 1:25 PM) Hemoglobin Refl [11.7-15.5 g/dL] 16.9 g/ dL 26 *HI* (05/09/23 2:31 PM) Hematocrit Refl [35.0-45.0 %] 50.9 % 27 *HI* (05/09/23 2:31 PM) RBC Refl [3.80-5.10 Million/uL] 5.38 Mil lion/uL 28 *HI* (05/09/23 2:31 PM) MCV Refl [80.0-100.0 fL] 94.6 fL 29 (05/09/23 2:31 PM) MCH Refl [27.0-33.0 pg] 31.4 pg 30 (05/09/23 2:31 PM) RDW Refl [11.0-15.0 %] 12.8 % 31 (05/09/23 2:31 PM) Alkaline Phosphatase (ALP) [37-153 U/L] 67 U/L 32 (05/09/23 2:31 PM) Albumin, Serum [3.6-5.1 g/dL] 4.5 g/dL 3 3 (05/09/23 2:31 PM) ALT [6-29 U/L] 30 U/L 34 *HI* (05/09/23 2:31 PM) eGFR-QST [> OR = 60 mL/min/1.73m2] 106 m L/min/1.73m2 35 (05/09/23 2:31 PM) MCHC (QST) [32.0-36.0 g/dL] 33.2 g/dL 36 (05/09/23 2:31 PM) Gluc Meter [74-109 mg/dL] 113 mg/dL *HI* (05/09/23 1:25 PM) AST [10-35 U/L] 29 U/L 37 (05/09/23 2:31 PM) Glucose-Qst [65-99 mg/dL] 104 mg/dL 38 *HI* (05/09/23 2:31 PM) Platelet Count [140-400 Thousand/uL] 309 Thousand/uL 39 (05/09/23 2:31 PM) Total Protein-QST [6.1-8.1 g/dL] 7.7 g/d L 40 (05/09/23 2:31 PM) 1Result Comment: Specimen Received d/t: 05/10/2023 06:01:00 Lab test performed by: [employer] [facility] [address] [place] [address]Molina Lowe MD 2Result Comment: Performed at: [facility] [place], [address], [place] [address] 3Result Comment: Specimen Received d/t: 05/10/2023 06:01:00 Lab test performed by: [employer] [facility] [address] [place] [address]Molina Lowe MD 4Result Comment: Specimen Received d/t: 05/10/2023 06:01:00 Lab test performed by: [employer] [facility] [address] [place] [address] [place] [phone] Lowe MD 5Result Comment: Specimen Received d/t: 05/10/2023 06:01:00 Lab test performed by: [employer] [facility] [address] [place] [address] [place] [address]Zacarias Lowe MD 6Result Comment: Not Reported: BUN and Creatinine are within reference range. Specimen Received d/t: 05/10/2023 06:01:00 Lab test performed by: [employer] [facility] [address] [place] [address] [place] [address]Molina Lowe MD 7Result Comment: Specimen Received d/t: 05/10/2023 06:01:00 Lab test performed by: [employer] [facility] [address] [place] [address] [place] Salud Lowe MD 8Result Comment: Specimen Received d/t: 05/10/2023 06:01:00 Lab test performed by: [employer] [facility] [address] [place] Salud Lowe MD 9Result Comment: Specimen Received d/t: 05/10/2023 06:01:00 Lab test performed by: [employer] [facility] [address], [place] 10Result Comment: Specimen Received d/t: 05/10/2023 06:01:00 Lab test performed by: [employer] [facility] [address] [place], [place] Salud Lowe MD 11Result Comment: Specimen Received d/t: 05/10/2023 06:01:00 Lab test performed by: [employer] [facility] [address] [place], [place] Salud Lowe MD 12Result Comment: Specimen Received d/t: 05/10/2023 06:01:00 Lab test performed by: [employer], [facility] [address] [place], [place] Salud Lowe MD 13Result Comment: Specimen Received d/t: 05/10/2023 06:01:00 Lab test performed by: [employer] [facility] [address] [place], [place] Salud Lowe MD 14Result Comment: Specimen Received d/t: 05/10/2023 06:01:00 Lab test performed by: [employer] [facility] [address] [place] [address]Jazmin Lowe MD 15Result Comment: Specimen Received d/t: 05/10/2023 06:01:00 Lab test performed by: [employer] [facility] [address] [place] [address]Jazmin Lowe MD 16Result Comment: Specimen Received d/t: 05/10/2023 06:01:00 Lab test performed by: [employer] [facility] [address] [place] [address]Molina Lowe MD 17Result Comment: Specimen Received d/t: 05/10/2023 06:01:00 Lab test performed by: [employer] [facility] [address] [place] [address]Zacarias Lowe MD 18Result Comment: Specimen Received d/t: 05/10/2023 06:01:00 Lab test performed by: [facility], [facility] [address] [place] [address] Thom Lowe MD 19Result Comment: Specimen Received d/t: 05/10/2023 06:01:00 Lab test performed by: [employer], [facility] [address] [place] [address] Thom Lowe MD 20Result Comment: Specimen Received d/t: 05/10/2023 06:01:00 Lab test performed by: [employer], [facility] [address] [place] [address] Thom Lowe MD 21Result Comment: Specimen Received d/t: 05/10/2023 06:01:00 Lab test performed by: [employer], [facility] [address] [place] [address] Thom Lowe MD 22Result Comment: Specimen Received d/t: 05/10/2023 06:01:00 Lab test performed by: [employer], [facility] [address] [place] [address] Thom Lowe MD 23Result Comment: Specimen Received d/t: 05/10/2023 06:01:00 Lab test performed by: [facility] [employer], [facility] [address] [place] [address] Thom Lowe MD 24Result Comment: Specimen Received d/t: 05/10/2023 06:01:00 Lab test performed by: [employer], [facility] [address] [place] [address] Thom Lowe MD 25Result Comment: [facility] [address] [place] [address] 26Result Comment: Specimen Received d/t: 05/10/2023 06:01:00 Lab test performed by: [employer], [facility] [address] [place] [address] Thom Lowe MD 27Result Comment: Specimen Received d/t: 05/10/2023 06:01:00 Lab test performed by: [employer], [facility] [address] [place] [address] Thom Lowe MD 28Result Comment: Specimen Received d/t: 05/10/2023 06:01:00 Lab test performed by: [facility], [facility] [address] [place] [address] Thom Lowe MD 29Result Comment: Specimen Received d/t: 05/10/2023 06:01:00 Lab test performed by: [facility], [facility] [address] [place] [address] Thom Lowe MD 30Result Comment: Specimen Received d/t: 05/10/2023 06:01:00 Lab test performed by: [employer], [facility] [address] [place] [address] Thom Lowe MD 31Result Comment: Specimen Received d/t: 05/10/2023 06:01:00 Lab test performed by: [employer], [facility] [address] [place] [address] Thom Lowe MD 32Result Comment: Specimen Received d/t: 05/10/2023 06:01:00 Lab test performed by: [employer] [facility] [address] [place] [address] Thom Lowe MD 33Result Comment: Specimen Received d/t: 05/10/2023 06:01:00 Lab test performed by: [facility] [employer], [facility] [address] [place] [address] Thom Lowe MD 34Result Comment: Specimen Received d/t: 05/10/2023 06:01:00 Lab test performed by: [employer], [facility] [address] [place] [address] Thom Lowe MD 35Result Comment: Specimen Received d/t: 05/10/2023 06:01:00 Lab test performed by: [facility], [facility] [address] [address] Thom Lowe MD 36Result Comment: Specimen Received d/t: 05/10/2023 06:01:00 Lab test performed by: [facility] [address] [address]Molina Lowe MD 37Result Comment: Specimen Received d/t: 05/10/2023 06:01:00 Lab test performed by: [facility] [address] [address]Molina Lowe MD 38Result Comment: Fasting reference interval For someone without known diabetes, a glucose value between 100 and 125 mg/dL is consistent with prediabetes and should be confirmed with a follow-up test. Specimen Received d/t: 05/10/2023 06:01:00 Lab test performed by: [facility] [address] [address]Molina Lowe MD 39Result Comment: Specimen Received d/t: 05/10/2023 06:01:00 Lab test performed by: [facility] [address] [address]Molina Lowe MD 40Result Comment: Specimen Received d/t: 05/10/2023 06:01:00 Lab test performed by: [facility] [address] [address]Molina Lowe MD Vital Signs Most recent to oldest [Reference Range]: 1 Patient Weight 97.5 kg (05/09/23 12:54 PM) Heart Rate 68 bpm (05/09/23 12:54 PM) Respiratory Rate 16 br/min (05/09/23 12:54 PM) Blood Pressure 142/90mmHg (05/09/23 12:54 PM) Cuff Pulse Pressure 52 mmHg (05/09/23 12:54 PM) Social History Social History Type Response Tobacco Current every day sm oker, Cigarettes, 0.5 per day. Smoking Status Current every day li ght smoker Sex Female FCM Outpt Note * DO Snyder Allison B: PERFORM Event Display: FCM Outpt Note Authored Date: [id number] Chief Complaint saturday was dizzy and would stumble. threw up in the evening. continue to throw up. so tired. kept down a bowl of cereal. this morning ears are clogged. moves a certain wau and is sick History of Present Illness Patient is a 52 year old female that presents to the office for an acute visit. She complains today dizziness andvomiting. She reports that on Tuesdayshe felt dizzy. She has frontal head pressure. She reports that the week prior she had been sick with sinusitisoff. She been taking Mucinex and NyQuil. She states that her dizziness feels like a vertigo sensation and she had thisyears ago. She feels some pressure in the left ear. She denies any head injury. She denies any vision changes. She has someringing in her years since last week. She denies any chest pain, shortness of breath, or any palpitations. She is overdue for routineblood work. She denies any rash. She states that she feels fatigued. She feels that thevomiting is after the dizziness. She feels that the dizziness is secondary toimprovement. She felt that she was improving today and only vomited once, but had some issues after talking on the phone. She has some slight diarrhea. She denies any recent travel. Denies any new foods. She denies any abdominal complaints. She denies any . She has been taking aCanadian medication called Gravol for her nausea. She denies any fevers, states that she felt chills last night. [facility] and states that she has not been trying. Review of Systems Constitutional: No fever, +chills, +fatigue._ Respiratory: No shortness of breath, No cough, No wheezing. Cardiovascular: no lightheadedness/presyncope, No chest pain, No palpitations._ Gastrointestinal:+nausea,+ vomiting, +diarrhea, No constipation, No heartburn, No abdominal pain._ Musculoskeletal: No back pain, No neck pain, No joint pain, No muscle pain, No decreased range ofmotion, No trauma._ Skin: No rash, No pruritus, No breakdown._ Neurologic:No abnormal balance, No numbness, No tingling, No headache._ Physical Exam Vitals & Measurements HR:68(Monitored) RR:16 BP:142/90 SpO2:97% WT:97.500kg(Dosing) WT:97.5kg PHQ2 Data(Data Documented on:05/09/2023 12:54) Emotional health assessment NEGATIVE General: _Alert and oriented, No acute distress HEENT: _ Normocephalic, TM clear, Nl gross hearing, moist oral mucosa _ Cardiovascular: _Normal rate, Regular rhythm, No murmur, No gallop. Respiratory: _Lungs are clear to auscultation, Respirations are non-labored, Breath sounds are equal Gastrointestinal: _Soft, Non-tender, Non-distended, Normal bowel sounds. Musculoskeletal: _Normal range of motion,normal strength. Neurologic:Normal sensory, Normal motor function, CN II-XII grossly intact. No facial asymmetry. Integumentary: _Warm, Dry, Mona. Psych: Mood-affect congruence. Reports no SI/HI. Speech is of normal pace and content Assessment/Plan 1.Dizziness Symptoms sound suggestive of vertigo. No alarming signs or symptom today, and did discuss with patient that if symptoms worsen to ER. She declines CT head today and states that headache is pressure and feels better with cold compress. Alarming signs discussed. Will treat with meclizine and zofran. 2.Fatigue Blood glucose check in office was 113. Will check CBC and CMP. Questionable viral etiology since patient sick last week. 3.Vomiting Unclear etiology. Patient reports that she feels nauseate with the dizziness, and unsure if viral etiology.Push fluids. Patient without abdominal complaints and she reports that she is able to keep down liquids. Warning signs discussed. Warning signs discussed. Start Meclizine and Zofran. Patient declined CT brain and will monitor. Follow up in the office or ER if symptoms worsen or persist. Problem List/Past Medical History Ongoing Arthritis of left knee Hot flashes, menopausal Impaired fasting glucose Medial meniscus tear Osteoarthritis of left knee Rash Tendinopathy of elbow Tobacco user Historical Elbow pain Forearm pain Lateral epicondylitis Preop examination Right knee pain S/P right knee arthroscopy Tobacco user Trigger middle finger Trigger thumb Procedure/Surgical History Lung cancer screening (09/27/2021)Mammogram - screening (09/20/2021)Abdominal hysterectomy Medications cetirizine(ZyrTEC 10 mg oral tablet), 10 mg= 1 tab, PO, Daily, PRN, 1 refills meclizine(meclizine 25 mg oral tablet), 25 mg= 1 tab, PO, tid, PRN meloxicam(Mobic 15 mg oral tablet), 15 mg= 1 tab, PO, Daily, 6 refills ondansetron(Zofran 4 mg oral tablet), 4 mg= 1 tab, PO, bid, PRN venlafaxine(venlafaxine 37.5 mg oral capsule, extended release), See Instructions, 11 refills Allergies Cats Percocet 5/325gi upset Social History Smoking Status Current every day light smoker Alcohol Type:Wine, Liquor Frequency:1-2 times per month 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 Type I diabetes mellitus: Mother. Health Status Family Member(s) Recommendations Health Maintenance Pending(in the next year) OverDue Adult Influenza Vaccine due10/05/22and every 1year Due Adult COVID-19 Vaccination due05/09/23Unknown Frequency Adult Social Determinants of Health Screening due05/09/23Unknown Frequency Adult Tdap/Td Vaccine due05/09/23Unknown Frequency Hepatitis C Screening due05/09/23One-time only Lipid Screening due05/09/23Unknown Frequency Pneumococcal Vaccine Adults and Adolescents with Chronic Illness due05/09/23One-time only Shingles Vaccine due05/09/23One-time only Due In Future Breast Cancer Screening not due until09/21/23and every 731day Satisfied(in the past 1 year) Satisfied Body Mass Index on12/21/22.Satisfied by BETITO Corado Bobbi Electronic Signature on File Electronically Reviewed/Signed by: Zara Snyder DO Author Signature Dt/Tm:05/09/2023 01:34 PM Department of Family Medicine [facility] Patient Care team information Care Team Personnel Name: ASHLEIGH Cohn Tara Position: Nurse Pract - Family Med Member Role: Primary Care Provider Address: Address: [address] [place] [address], [place] [address] Care Team Related Persons Name: GREY MELLO Address: home [address] [place] [address] MARYBETH [phone]
== END 2023-05-13 10:35 | disposition home or self-care (01) ==
LOC: 2N 14:40 → ED 14:40 → SUATTDRO 20:04 → 2N 21:59